=== PATIENT | male | born 1940 | race Native Hawaiian/Other Pacific Islander ===

== ENCOUNTER 2016-08-23 15:33 | Outpatient (CLI) | payer OTHER ==
[~2016-08-23 15:33] MED LIST: ACID CONTROL150 MG OR; AMLO10TA PO; CELEXA20 MG OR; COZAAR100 MG PO; HYDR25TA60 PO; LEVO0.0218 PO; LOPRESSOR50 MG PO; SIMV20TA2 PO; TRILIPIX135 MG OR; ULTRAM50 MG OR; ZOLP10TA2 PO
[2016-08-23 16:25] LABS: PLATELET COUNT 166 K/uL (142-355)
[2016-08-23 17:36] LABS: POTASSIUM 4.7 mmol/L (3.6-5.2)
== END 2016-08-23 20:21 | disposition home or self-care (01) ==
LOC: LAB 15:33
PROVIDERS: Nurse Practitioner Family
DX: E11.9 Type 2 diabetes mellitus without complications (principal); I10 Essential (primary) hypertension; E78.4 Other hyperlipidemia
CPT/HCPCS: 80053; 80061; 83036; 84439; 84443; 85027

== ENCOUNTER 2017-04-24 13:38 | Outpatient (CLI) | payer OTHER ==
[2017-04-24 14:32] LABS: PLATELET COUNT 131 K/uL (142-355)
== END 2017-04-24 14:40 | disposition home or self-care (01) ==
LOC: LAB 13:38
PROVIDERS: Nurse Practitioner Family
DX: I10 Essential (primary) hypertension (principal); E11.9 Type 2 diabetes mellitus without complications; E78.4 Other hyperlipidemia; Z79.899 Other long term (current) drug therapy; Z51.81 Encounter for therapeutic drug level monitoring
CPT/HCPCS: 80053; 80061; 83036; 84436; 84443; 85027

== ENCOUNTER 2017-08-07 19:51 | Emergency (ER) | payer OTHER ==
[~2017-08-07] VITALS: Ht 180.3 cm; Wt 108.9 kg
[2017-08-07] MEDS ORDERED: METF100038 OR (20:23)
[2017-08-07] MEDS ORDERED: JANUVIA100 MG PO (20:23)
[2017-08-07 20:28] LABS: PLATELET COUNT 115 K/uL (142-355)
[2017-08-07 20:34] LABS: POTASSIUM 4.3 mmol/L (3.6-5.2)
[2017-08-07 23:33] VITALS: BP 121/61; TEMP 98.5
== END 2017-08-07 23:35 | disposition home or self-care (01) ==
LOC: ED 19:51
DX: E11.65 Type 2 diabetes mellitus with hyperglycemia (principal); E86.0 Dehydration
CPT/HCPCS: 36600; 80053; 81002; 82805; 85027; 96374; 96376; 99284; J1815

== ENCOUNTER 2017-10-28 14:08 | Outpatient (CLI) | payer OTHER ==
[~2017-10-28 14:08] MED LIST changes: +JANUVIA100 MG PO; +METF100038 OR
[2017-10-28 14:46] LABS: PLATELET COUNT 181 K/uL (142-355)
[2017-10-28 15:26] LABS: POTASSIUM 4.1 mmol/L (3.6-5.2)
== END 2017-10-28 22:43 | disposition home or self-care (01) ==
LOC: LAB 14:08
PROVIDERS: Nurse Practitioner Family
DX: I10 Essential (primary) hypertension (principal); E11.9 Type 2 diabetes mellitus without complications; Z79.899 Other long term (current) drug therapy; Z51.81 Encounter for therapeutic drug level monitoring
CPT/HCPCS: 80053; 80061; 83036; 84154; 84436; 84443; 85027

== ENCOUNTER 2018-10-27 10:50 | Outpatient (CLI) | payer OTHER ==
[2018-10-27 12:29] LABS: POTASSIUM 4.9 mmol/L (3.6-5.2)
== END 2018-10-27 19:37 | disposition home or self-care (01) ==
LOC: LABW 10:50 → US 10:50
PROVIDERS: Internal Medicine Nephrology
DX: I12.9 Hypertensive chronic kidney disease with stage 1 through stage 4 chronic kidney disease, or unspecified chronic kidney disease (principal); F32.89 Other specified depressive episodes; I51.89 Other ill-defined heart diseases; M15.8 Other polyosteoarthritis; F41.8 Other specified anxiety disorders; E78.00 Pure hypercholesterolemia, unspecified; K21.9 Gastro-esophageal reflux disease without esophagitis; E11.22 Type 2 diabetes mellitus with diabetic chronic kidney disease; G47.09 Other insomnia; N18.4 Chronic kidney disease, stage 4 (severe)
CPT/HCPCS: 36415; 80053; 82306; 82570; 83970; 84100; 84155; 84166

== ENCOUNTER 2019-02-07 13:11 | Emergency (ER) | payer OTHER ==
[~2019-02-07] VITALS: Ht 180.3 cm; Wt 108.4 kg
[2019-02-07 15:05] VITALS: BP 163/73; TEMP 98.1
== END 2019-02-07 15:08 | disposition home or self-care (01) ==
LOC: ED 13:11
DX: S09.8XXA Other specified injuries of head, initial encounter (principal); S00.81XA Abrasion of other part of head, initial encounter; S13.8XXA Sprain of joints and ligaments of other parts of neck, initial encounter; V59.9XXA Occupant (driver) (passenger) of pick-up truck or van injured in unspecified traffic accident, initial encounter; Y92.89 Other specified places as the place of occurrence of the external cause
CPT/HCPCS: 99283

== ENCOUNTER 2019-04-22 14:03 | Outpatient (CLI) | payer OTHER | END 2019-04-22 21:47 | disposition home or self-care (01) | LOC: RAD 14:03 | DX: R09.81 Nasal congestion (principal); R05 Cough; R06.02 Shortness of breath ==

== ENCOUNTER 2019-06-16 07:51 | Outpatient (CLI) | payer OTHER ==
[~2019-06-16] VITALS: Ht 180.3 cm; Wt 107.5 kg
== END 2019-06-16 22:18 | disposition home or self-care (01) ==
LOC: NM 07:51
DX: R06.02 Shortness of breath (principal); R94.31 Abnormal electrocardiogram [ECG] [EKG]; E11.9 Type 2 diabetes mellitus without complications
CPT/HCPCS: A9500; J2785

== ENCOUNTER 2019-06-16 10:58 | Emergency (ER) | payer OTHER ==
[~2019-06-16] VITALS: Ht 180.3 cm; Wt 107.5 kg
[2019-06-16 10:58] VITALS: TEMP 98.3
[2019-06-16 11:47] LABS: PLATELET COUNT 153 K/uL (142-355)
[2019-06-16 11:52] LABS: POTASSIUM 4.3 mmol/L (3.6-5.2); SODIUM 139 mmol/L (136-145)
[2019-06-16 13:57] VITALS: BP 183/86
== END 2019-06-16 13:56 | disposition home or self-care (01) ==
LOC: ED 10:58
PROVIDERS: Family Medicine
DX: I48.92 Unspecified atrial flutter (principal); I10 Essential (primary) hypertension; I45.19 Other right bundle-branch block
CPT/HCPCS: 80053; 81000; 82550; 84484; 85027; 85379; 93005; 96374; 96375; 99284; J1160

== ENCOUNTER 2019-07-21 08:05 | Outpatient (CLI) | payer OTHER ==
[~2019-07-21] VITALS: Ht 180.3 cm; Wt 106.6 kg
== END 2019-07-21 19:13 | disposition home or self-care (01) ==
LOC: NM 08:05
DX: I48.0 Paroxysmal atrial fibrillation (principal); R94.31 Abnormal electrocardiogram [ECG] [EKG]; R06.02 Shortness of breath
CPT/HCPCS: A9500; J2785; J3490

== ENCOUNTER 2019-07-30 14:21 | Outpatient (CLI) | payer OTHER | END 2019-07-30 19:04 | disposition home or self-care (01) | LOC: LAB 14:21 | DX: I12.9 Hypertensive chronic kidney disease with stage 1 through stage 4 chronic kidney disease, or unspecified chronic kidney disease (principal); E11.9 Type 2 diabetes mellitus without complications; N18.9 Chronic kidney disease, unspecified | CPT/HCPCS: 81000 ==

== ENCOUNTER 2019-12-01 09:56 | Outpatient (CLI) | payer OTHER ==
[2019-12-01 10:57] LABS: PLATELET COUNT 157 K/uL (142-355)
[2019-12-01 11:25] LABS: POTASSIUM 5.1 mmol/L (3.6-5.2)
== END 2019-12-01 19:06 | disposition home or self-care (01) ==
LOC: LAB 09:56
PROVIDERS: Nurse Practitioner Family
DX: E11.9 Type 2 diabetes mellitus without complications (principal); E03.8 Other specified hypothyroidism; E78.49 Other hyperlipidemia; I48.91 Unspecified atrial fibrillation; R53.83 Other fatigue; I12.9 Hypertensive chronic kidney disease with stage 1 through stage 4 chronic kidney disease, or unspecified chronic kidney disease; N18.9 Chronic kidney disease, unspecified
CPT/HCPCS: 80053; 84439; 84443; 84481; 85027

== ENCOUNTER 2020-01-04 08:10 | Outpatient (CLI) | payer OTHER ==
[2020-01-04 09:04] LABS: POTASSIUM 4.8 mmol/L (3.6-5.2)
[2020-01-04 09:57] LABS: PLATELET COUNT 136 K/uL (142-355)
== END 2020-01-04 19:07 | disposition home or self-care (01) ==
LOC: LABW 08:10
PROVIDERS: Internal Medicine
DX: E11.22 Type 2 diabetes mellitus with diabetic chronic kidney disease (principal); N18.4 Chronic kidney disease, stage 4 (severe); R53.83 Other fatigue; D63.1 Anemia in chronic kidney disease; E53.8 Deficiency of other specified B group vitamins
CPT/HCPCS: 36415; 80053; 81000; 82306; 82330; 82570; 82607; 82728; 82746; 83036; 83540; 83550; 83735; 83970; 84100; 84155; 84439; 84443; 85027

== ENCOUNTER 2020-04-13 15:18 | Outpatient (CLI) | payer OTHER ==
[2020-04-13 15:54] LABS: PLATELET COUNT 159 K/uL (142-355)
[2020-04-13 16:10] LABS: POTASSIUM 5.1 mmol/L (3.6-5.2)
== END 2020-04-13 20:03 | disposition home or self-care (01) ==
LOC: LABW 15:18
PROVIDERS: ATTEND Nurse Practitioner Family
DX: R41.82 Altered mental status, unspecified (principal); R42 Dizziness and giddiness
CPT/HCPCS: 36415; 80053; 80162; 84439; 84443; 84481; 85027

== ENCOUNTER 2020-04-14 09:57 | Outpatient (CLI) | payer OTHER ==
[2020-04-14 10:33] LABS: PLATELET COUNT 136 K/uL (142-355)
[2020-04-14 11:00] LABS: POTASSIUM 4.5 mmol/L (3.6-5.2)
== END 2020-04-14 19:01 | disposition home or self-care (01) ==
LOC: LABW 09:57
PROVIDERS: ATTEND Internal Medicine
DX: E11.22 Type 2 diabetes mellitus with diabetic chronic kidney disease (principal); N18.4 Chronic kidney disease, stage 4 (severe); D63.1 Anemia in chronic kidney disease
CPT/HCPCS: 36415; 80053; 81000; 82306; 82330; 82570; 82728; 83036; 83540; 83550; 83735; 83970; 84100; 84155; 85027

== ENCOUNTER 2020-05-17 09:46 | Outpatient (CLI) | payer OTHER ==
[2020-05-17 10:20] LABS: PLATELET COUNT 204 K/uL (142-355)
[2020-05-17 10:47] LABS: POTASSIUM 4.8 mmol/L (3.6-5.2); SODIUM 137 mmol/L (136-145)
== END 2020-05-17 22:07 | disposition home or self-care (01) ==
LOC: LABW 09:46
PROVIDERS: ATTEND Internal Medicine
DX: N18.4 Chronic kidney disease, stage 4 (severe) (principal); F32.9 Major depressive disorder, single episode, unspecified; C61 Malignant neoplasm of prostate; E11.9 Type 2 diabetes mellitus without complications; E78.49 Other hyperlipidemia; I25.10 Atherosclerotic heart disease of native coronary artery without angina pectoris
CPT/HCPCS: 80053; 80061; 80162; 81000; 83036; 84153; 84439; 84443; 85027

== ENCOUNTER 2020-10-13 11:54 | Outpatient (CLI) | payer OTHER ==
[2020-10-13 12:43] LABS: PLATELET COUNT 180 K/uL (142-355)
== END 2020-10-13 22:48 | disposition home or self-care (01) ==
LOC: LABW 11:54
PROVIDERS: ATTEND Internal Medicine
DX: E11.22 Type 2 diabetes mellitus with diabetic chronic kidney disease (principal); N18.4 Chronic kidney disease, stage 4 (severe)
CPT/HCPCS: 36415; 80053; 81000; 82043; 82306; 82330; 82570; 83036; 83735; 83970; 84100; 84155; 85027

== ENCOUNTER 2021-01-12 10:47 | Outpatient (CLI) | payer OTHER ==
[2021-01-12 11:16] LABS: PLATELET COUNT 236 K/uL (142-355)
[2021-01-12 11:29] LABS: POTASSIUM 4.6 mmol/L (3.6-5.2)
== END 2021-01-12 22:15 | disposition home or self-care (01) ==
LOC: LABW 10:47 → MRI 11:00 → LABW 22:15
PROVIDERS: ATTEND Internal Medicine
DX: R41.82 Altered mental status, unspecified (principal); E11.9 Type 2 diabetes mellitus without complications
CPT/HCPCS: 36415; 80053; 80061; 81000; 83036; 84439; 84443; 85027

== ENCOUNTER 2021-02-21 08:50 | Outpatient (CLI) | payer OTHER | END 2021-02-21 19:34 | disposition home or self-care (01) | LOC: RESP 08:50 | PROVIDERS: ATTEND Specialist | DX: G93.41 Metabolic encephalopathy (principal); G31.84 Mild cognitive impairment of uncertain or unknown etiology; G93.0 Cerebral cysts ==

== ENCOUNTER 2021-03-07 12:07 | Inpatient (IN) | payer OTHER ==
[~2021-03-07] VITALS: Ht 180.3 cm; Wt 105.0 kg
[2021-03-07 15:46] VITALS: BP 179/73; TEMP 97.9; Ht 180.3 cm; Wt 105.0 kg
[2021-03-07 16:00] VITALS: BP 131/65; TEMP 97.5
[2021-03-07 16:00] LABS: PLATELET COUNT 257 K/uL (142-355)
[2021-03-07] MEDS ORDERED: METO50TA27 PO (16:00)
[2021-03-07] MEDS ORDERED: CLOP75TA2 PO (16:01)
[2021-03-07] MEDS ORDERED: EUTHYROX50 MCG PO (16:03)
[2021-03-07] MEDS ORDERED: MULT VITAMI1 PO (16:04)
[2021-03-07] MEDS ORDERED: FENOFIBRATE40 MG PO (16:04)
[2021-03-07] MEDS ORDERED: COZAAR100 MG PO (16:05)
[2021-03-07] MEDS ORDERED: AMLODIPINE BESYLATE PO (16:06)
[2021-03-07] MEDS ORDERED: GLIM2TAB PO (16:07)
[2021-03-07] MEDS ORDERED: CITALOPRAM40 M1 PO (16:07)
[2021-03-07] MEDS ORDERED: DIGO0.1230 PO (16:08)
[2021-03-07] MEDS ORDERED: VITAMIN D50000 UNIT PO (16:08)
[2021-03-07] MEDS ORDERED: HYDR25TA60 PO (16:09)
[2021-03-07] MEDS ORDERED: PEPCID40 MG PO (16:10)
[2021-03-07] MEDS ORDERED: TRESIBA FL200 UNIT/M SC (16:11)
[2021-03-07 16:30] LABS: PARTIAL THROMBOPLASTIN TIME 24.1 SECONDS (24.5-33.6)
[2021-03-08] VITALS (7 sets, daily range): BP systolic 116–172; BP diastolic 55–71; TEMP 97.4–98.6
[2021-03-08 08:40] LABS: POTASSIUM 4.5 mmol/L (3.6-5.2)
[2021-03-09 03:50] VITALS: BP 148/56; TEMP 98.4
[2021-03-09 04:47] LABS: PLATELET COUNT 222 K/uL (142-355)
[2021-03-09 05:01] LABS: POTASSIUM 4.8 mmol/L (3.6-5.2)
[2021-03-09 08:00] VITALS: BP 153/57; TEMP 98.4
[2021-03-09 12:00] VITALS: BP 150/60; TEMP 97.6
[2021-03-09 16:00] VITALS: BP 152/71; TEMP 98.4
[2021-03-09 20:16] VITALS: BP 155/58; TEMP 98.9
[2021-03-10] VITALS: BP 174/66; TEMP 98.5
[2021-03-10 04:09] VITALS: BP 153/63; TEMP 98.2
[2021-03-10 05:18] LABS: PLATELET COUNT 226 K/uL (142-355)
[2021-03-10 05:36] LABS: POTASSIUM 4.6 mmol/L (3.6-5.2)
[2021-03-10 08:00] VITALS: BP 184/64; TEMP 97.4
[2021-03-10] MEDS ORDERED: AMLODIPINE BESYLATE PO (10:11)
[2021-03-10] MEDS ORDERED: FURO40TA93 PO (10:13)
== END 2021-03-10 12:20 | disposition home or self-care (01) | DRG 291 ==
LOC: MED/SURG 12:07
PROVIDERS: Internal Medicine; ADMIT Internal Medicine Endocrinology, Diabetes & Metabolism; ATTEND Internal Medicine Endocrinology, Diabetes & Metabolism
DX: I13.0 Hypertensive heart and chronic kidney disease with heart failure and stage 1 through stage 4 chronic kidney disease, or unspecified chronic kidney disease (principal); I50.31 Acute diastolic (congestive) heart failure; N18.4 Chronic kidney disease, stage 4 (severe); N17.8 Other acute kidney failure; E11.22 Type 2 diabetes mellitus with diabetic chronic kidney disease; I25.10 Atherosclerotic heart disease of native coronary artery without angina pectoris; Z85.46 Personal history of malignant neoplasm of prostate; E78.49 Other hyperlipidemia; E03.8 Other specified hypothyroidism; F41.1 Generalized anxiety disorder; K21.9 Gastro-esophageal reflux disease without esophagitis; I48.91 Unspecified atrial fibrillation
CPT/HCPCS: 36415; 80048; 80053; 80061; 80162; 82550; 83735; 83880; 84443; 84484; 85027; 85610; 85730; 87635; 93005; 94760; J1650; J1815; J1940; U0003